=== PATIENT | male | born 1940 | race Caucasian/White ===

== ENCOUNTER 2021-01-10 09:24 | Outpatient (CLI) | payer OTHER ==
[~2021-01-10 09:24] MED LIST: ALBMDI INH; DICL-8 PO; DOXA4TAB3 PO; SOM350 PO; [UNRECOGNIZED DRUG - CODE] PO
== END 2021-01-10 20:49 | disposition home or self-care (01) ==
LOC: SRD 09:24
PROVIDERS: ATTEND Specialist
DX: K57.30 Diverticulosis of large intestine without perforation or abscess without bleeding (principal)
CPT/HCPCS: 74280-TC